=== PATIENT | female | born 1955 | race Two or more races ===

== ENCOUNTER 2024-07-02 07:28 | Emergency (ER) | payer OTHER ==
[~2024-07-02] VITALS: Ht 152.4 cm; Wt 49.0 kg
--- NOTE | 2024-07-02 08:14 | ED.PDOC ---
GI ASSESSMENT HPI Comments 69 year old female presents to the ED with chief complaint of abdominal pain. Patient reports that she has been experiencing RLQ abdominal burning for the past 2 weeks and with associated intermittent diarrhea. Patient denies any N/V, fever, chills, dysuria, chest pain, or cough. Chief Complaint: Abdominal Pain Time Seen by MD: 08:12 Reviewed Notes: Nurses Notes, Medications, Allergies Allergies: Coded Allergies: NO KNOWN ALLERGIES (Unverified , 07/02/24) Home Meds Active Scripts Sennosides-Docusate Sodium (Senna Plus 50-8.6 mg) 1 Cap Cap, 2 CAP PO Q.h.s. 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 History: Uterine Fibroids Family History Family History: Reviewed,noncontributory to illness Social History Smoker: Non-Smoker Alcohol: Denies ETOH Use Drugs: Denies Drug Use Lives In: Home Constitutional: denies: chills, diaphoresis, fatigue, fever, malaise, sweats, weakness, others EENTM: denies: blurred vision, double vision, ear bleeding, ear discharge, ear drainage, ear pain, ear ringing, eye pain, eye redness, hearing loss, mouth pain, mouth swelling, nasal discharge, nose bleeding, nose congestion, nose pain, photophobia, tearing, throat pain, throat swelling, voice changes, others Respiratory: denies: cough, hemoptysis, orthopnea, SOB at rest, shortness of breath, SOB with excertion, stridor, wheezing, others Cardiovascular: denies: chest pain, dizzy spells, diaphoresis, Dyspnea on exertion, edema, irregular heart beat, left arm pain, lightheadedness, palpitations, PND, syncope, others Gastrointestinal: reports: abdominal pain, diarrhea; denies: abdomen distended, blood streaked bowels, constipated, dysphagia, difficulty swallowing, hematemesis, melena, nausea, poor appetite, poor fluid intake, rectal bleeding, rectal pain, vomiting, others Genitourinary: denies: abnormal vagina bleeding, burning, dyspareunia, dysuria, flank pain, frequency, hematuria, incontinence, pain, , vagina d ischarge, urgency, others Neurological: denies: dizziness, fainting, headache, left sided numbness, left sided weakness, numbness, paresthesia, pre-existing deficit, right sided numbness, right sided weakness, seizure, speech problems, tingling, tremors, weakness, others Musculoskeletal: denies: back pain, gout, joint pain, joint swelling, muscle pain, muscle stiffness, neck pain, others Integumetry: denies: bruises, change in color, change in hair/nails, dryness, laceration, lesions, lumps, rash, wounds, others Allergic/Immunocompromised: denies: Difficulty Healing, Frequent Infections, Hives, Itching, others Hematologic/Lymphatic: denies: anemia, blood clots, easy bleeding, easy bruising, swollen glands, others Endocrine: denies: excessive hunger, excessive sweating, excessive thirst, excessive urination, flushing, intolerance to cold, intolerance to heat, unexplained weight gain, unexplained weight loss, others Psychiatric: denies: anxiety, bipolar disorder, depression, hopeless, panic disorder, schizophrenia, sleepless, suicidal, others All Other Systems: Reviewed and Negative Physical Exam General Appearance: Mild Distress, Thin HEENT: Normal ENT Inspection, Pharynx Normal, TMs Normal Neck: Full Range of Motion, Non-Tender, Normal, Normal Inspection Respiratory: Chest Non-Tender, Lungs Clear, No Accessory Muscle Use, No Respiratory Distress, Normal Breath Sounds Cardiovascular: No Edema, No JVD, No Murmur, No Gallop, Normal Peripheral Pulses, Regular Rate/Rhythm Breast Exam: Deferred Gastrointestinal: Hernia, No Organomegaly, No Pulsatile Mass, Normal Bowel Sounds, RLQ, Tenderness Genitalia: Deferred Pelvic: Deferred Rectal: Deferred Extremities: No calf tenderness, Normal capillary refill, Normal inspection, No rmal range of motion, Non-tender, No pedal edema Neurologic: Alert, design checker II-XII nml as Tested, No Motor Deficits, Normal Affect, Normal Mood, No Sensory Deficits Cerebellar Function: Normal Reflexes: Normal Skin: Dry, Normal Color, Warm Peripheral Pulses: 1+ carotid (R), 1+ carotid (L) Lymphatic: No Adenopathy Was a procedure done? Was a procedure done?: No GI differential Dx Differential Diagnosis: Appendicitis, Cholecystitis, Constipation, Diverticular disease, Ovarian cyst/torsion, UTI, Urolithiasis, Dehydration, Diabetes/ DKA, Drug toxicity, Electrolyte Imbalance, Mass, Anemia X-Ray, Labs, Meds, VS Vital Signs Date Time Temp Pulse Resp B/P (MAP) Pulse Ox O2 Delivery O2 Flow Rate FiO2 07/02/24 08:58 70 18 97 Room Air* 0 21 07/02/24 08:58 98.3 70 18 146/62 (90) 97 98.3 07/02/24 07:47 98.6 85 20 157/61 (93) 96 Lab Test 07/02/24 08:56 07/02/24 08:51 Range/Units White Blood Count 7.2 4.4-10.8 10^3/uL Red Blood Count 4.37 4.0-5.20 10^6/uL Hemoglobin 13.3 12.2-16.2 g/dL Hematocrit 40.2 36.0-46.0 % Mean Corpuscular Volume 91.9 80.0-100.0 fL Mean Corpuscular Hemoglobin 30.3 28.0-32.0 pg Mean Corpuscular Hemoglobin Concent 33.0 32.0-36.0 g/dL Red Cell Distribution Width 13.9 11.8-14.3 % Platelet Count 274 140-450 10^3/uL Mean Platelet Volume 7.7 6.9-10.8 fL Neutrophils (%) (Auto) 75.4 37.0-80.0 % Lymphocytes (%) (Auto) 19.1 10.0-50.0 % Monocytes (%) (Auto) 3.9 0.0-12.0 % Eosinophils (%) (Auto) 0.7 0.0-7.0 % Basophils (%) (Auto) 0.9 0.0-2.0 % Neutrophils # (Auto) 5.4 1.6-8.6 10 ^3/uL Lymphocytes # (Auto) 1.4 0.4-5.4 10 ^3/uL Monocytes # (Auto) 0.3 0-1.3 10 ^3/uL Eosinophils # (Auto) 0.1 0-0.8 10 ^3/uL Basophils # (Auto) 0.1 0-0.2 10 ^3/uL Nucleated Red Blood Cells 0.1 % Sodium Level 139 136-145 mmol/L Potassium Level 4.3 3.5-5.1 mmol/L Chloride Level 107 98-107 mmol/L Carbon Dioxide Level 27 20-31 mmol/L Anion Gap 5 5-15 Blood Urea Nitrogen 11 9-23 mg/dL Creatinine 0.64 0.550-1.02 mg/dL Glomerular Filtration Rate Calc 95 >90 mL/min BUN/Creatinine Ratio 17.2 10.0-20.0 Serum Glucose 106 74-106 mg/dL Calcium Level 10.5 H 8.7-10.4 mg/dL Magnesium Level 2.2 1.6-2.6 mg/dL Urine Color Light-yellow Yellow Urine Clarity Clear Clear Urine pH 7.5 5.0-9.0 Urine Specific Melvin 1.018 1.001-1.035 Urine Protein Negative Negative Urine Ketones Negative Negative Urine Blood Negative Negative /uL Urine Nitrite Negative Negative Urine Bilirubin Negative Negative Urine Urobilinogen Normal Negative mg/dL Urine Leukocyte Esterase Negative Negative /uL Urine RBC 2 0 - 4 /hpf Urine WBC 1 0 - 5 /hpf Urine Squamous Epithelial Cells Few <5 /hpf Urine Bacteria None seen None Seen /hpf Urine Glucose Normal Normal mg/dL CT Abd/Pel w/ IV Con: FINDINGS: 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 There is no evidence of a discrete renal lesion or nephrolithiasis. There is no hydronephrosis. The liver demonstrates decreased attenuation likely related mild fatty infiltration. There are scattered small hepatic cysts measuring up to 1.2 cm. The gallbladder, pancreas, adrenal glands, and spleen appear within normal limits. There is no evidence of abdominal lymphadenopathy. There is no free fluid or free air. The stomach grossly appears unremarkable. The small and large bowel loops demonstrate normal caliber. The abdominal aorta and IVC appear within normal limits. The bladder appears within normal limits the degree of distention. Pelvic organs appears unremarkable. There is no evidence of a pelvic mass or lymphadenopathy. There is no free fluid collection. There is scarring versus atelectasis in the posterior lung bases. There is no acute osseous abnormality. There is no evidence of an abdominal wall hernia. IMPRESSION: 1. There is no acute process in the abdomen and pelvis.. 2. 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 There is no evidence of a discrete renal lesion, nephrolithiasis or hydronephrosis. 3. Mild fatty infiltration of the liver. X-Ray, Labs, Meds, VS Comment Course in the emergency department eventful patient came in with the pain mostly on right side blood pressure 157/61 patient with a history of hypertension and fibroid surgery CBC is normal Urine is negative BNP negative Magnesium two two CT abdomen and pelvis is negative except for fatty liver no hernia Patient will be discharged home to follow up with PCP Images Reviewed?: Images reviewed and evaluated by me Time of 1ST Reevaluation: 09:12 Reevaluation 1ST: Unchanged Time of 2ND Reevaluation: 11:18 Reevaluation 2ND: Improved Consultation: PCP Patient Education/Counseling: Diagnosis, Treatment, Prognosis, Need For Follow Up Family Education/Counseling: Diagnosis, Treatment, Prognosis, Need For Follow Up, No Family Present Additional Information - The following tests were ordered, and results were reviewed by me: CT Abd/Pel w/ IV Con, UA, CBC, BMP, Magnesium - I reviewed and agreed with the following test results read by other provider: CT Abd/Pel w/ IV Con - I discussed treatments and results with medical personnel. Departure 1 Departure Time of Disposition: 11:19 Impression: Primary Impression: Right sided abdominal pain Ruled Out: Appendicitis, Abdominal hernia, Urinary tract infection Disposition: HOME / SELF CARE / HOMELESS Condition: Good Additional Instructions: Push fluids and follow up with your PCP e-Prescriptions Sennosides-Docusate Sodium (Senna Plus 50-8.6 mg) 1 Cap Cap 2 CAP PO Q.h.s. for 5 Days, #10 CAP Prov: JENN FINLEY MD 07/02/24 Metoclopramide Hcl (Reglan) 10 Mg Tab 10 MG PO TID for 5 Days, #15 TAB Prov: JENN FINLEY MD 07/02/24 Discharged With: Self Critical Care Note Critical Care Time?: No Stability Stability form required: No Heart Score Heart Score: Heart Score Response (Comments) Value History N/A 0 EKG N/A 0 Age >65 2 Risk Factors 1 or 2 risk factors 1 Troponin N/A 0 Total 3 I personally scribed for JENN FINLEY MD ([email or web address]) on 07/02/24 at 08:14. Electronically submitted by [employer] ([email or web address]). I personally scribed for JENN FINLEY MD ([email or web address]) on 07/02/24 at 11:33. Electronically submitted by [employer] ([email or web address]). I personally scribed for JENN FINLEY MD ([email or web address]) on 07/02/24 at 11:35. Electronically submitted by [employer] ([email or web address]). JENN FINLEY MD Jul 02, 2024 08:14
[2024-07-02] MEDS: SODIUM CHLORIDE 0.9% 1,000 ML IV ONE (08:23)
[2024-07-02 08:58] VITALS: PULSE 70; RESP 18; O2SAT 97
[2024-07-02] MEDS: METOCLOPRAMIDE HCL 5MG/ml INJ 2ml VIAL IV ONE (08:58)
[2024-07-02 09:05] LABS: Urine Bacteria None Seen /hpf (None Seen)
[2024-07-02 09:10] LABS: Basophils # (auto) 0.1 10 ^3/uL (0-0.2); Basophils % (auto) 0.9 % (0.0-2.0); Eosinophils # (auto) 0.1 10 ^3/uL (0-0.8); Eosinophils % (auto) 0.7 % (0.0-7.0); Hematocrit 40.2 % (36.0-46.0); Hemoglobin 13.3 g/dL (12.2-16.2); Lymphocytes # (auto) 1.4 10 ^3/uL (0.4-5.4); Lymphocytes % (auto) 19.1 % (10.0-50.0); Mean Corpuscular Hemoglobin 30.3 pg (28.0-32.0); Mean Corpuscular Volume 91.9 fL (80.0-100.0); Monocytes # (auto) 0.3 10 ^3/uL (0-1.3); Monocytes % (auto) 3.9 % (0.0-12.0); Neutrophils # (auto) 5.4 10 ^3/uL (1.6-8.6); Neutrophils % (auto) 75.4 % (37.0-80.0); Nucleated Red Blood Cells % 0.1 %; Platelet Count (auto) 274 10^3/uL (140-450); Red Blood Cells 4.37 10^6/uL (4.0-5.20); Red Cell Distribution Width 13.9 % (11.8-14.3); White Blood Cell 7.2 10^3/uL (4.4-10.8)
[2024-07-02 09:22] LABS: Chloride 107 mmol/L (98-107); Potassium 4.3 mmol/L (3.5-5.1); Sodium 139 mmol/L (136-145)
[2024-07-02 09:23] LABS: Anion Gap 5 (5-15); Carbon Dioxide 27 mmol/L (20-31)
[2024-07-02 09:27] LABS: Urine Blood Negative /uL (Negative); Urine Clarity Clear (Clear); Urine Color Light-Yellow (Yellow); Urine Protein, UAD Negative (Negative); Urine Specific Gravity 1.018 (1.001-1.035); Urine Urobilinogen Normal (Negative); Urine WBC 1 /hpf (0 - 5); Urine pH 7.5 (5.0-9.0)
[2024-07-02 09:28] LABS: BUN/Creatinine Ratio 17.2 (10.0-20.0); Blood Urea Nitrogen 11 mg/dL (9-23)
[2024-07-02 09:29] LABS: Magnesium 2.2 mg/dL (1.6-2.6)
[2024-07-02 09:31] LABS: Calcium 10.5 mg/dL (8.7-10.4); Glucose 106 mg/dL (74-106)
[2024-07-02] MEDS: IOHEXOL 300 MG/ML 100ML BOTTLE IJ ONE (09:56)
--- NOTE | 2024-07-02 10:21 | DVH ---
Exam: CT CT AB PEL WITH IV CON ONLY History: Right-sided abdominal pain possible hernia TECHNIQUE: A digital home health clinical supervisor image was obtained. During the uneventful, intravenous administration of c ontrast material, multislice data acquisition was obtained through the abdomen and pelvis. The data s et was subsequently reconstructed into axial images. Images were reviewed on a work station using a c ombination of axial and multiplanar using a variety of window levels and settings. 100 cc of Omnipaqu e 300 contrast was injected intravenously. All CT scans at this medical facility are performed using dose modulation techniques as appropriate t o a performed exam including the following:Automated exposure control was utilized; adjustment of the MA and/or KV according to patient size; and use of iterative reconstruction technique. Radiation Dose Information: CT Dose: CTDI volume is 5.61 mGy. Dose-length product is 269.01 mGy*cm Comparison: None FINDINGS: The left kidney is ectopically positioned in the midline upper pelvis/lower abdomen region and is mal rotated.. There is no evidence of a discrete renal lesion or nephrolithiasis. There is no hydronephro sis. The liver demonstrates decreased attenuation likely related mild fatty infiltration. There are scatte red small hepatic cysts measuring up to 1.2 cm. The gallbladder, pancreas, adrenal glands, and splee n appear within normal limits. There is no evidence of abdominal lymphadenopathy. There is no free fluid or free air. The stomach grossly appears unremarkable. The small and large bowel loops demonstrate normal caliber. The abdominal aorta and IVC appear within normal limits. The bladder appears within normal limits the degree of distention. Pelvic organs appears unremarkabl e. There is no evidence of a pelvic mass or lymphadenopathy. There is no free fluid collection. There is scarring versus atelectasis in the posterior lung bases. There is no acute osseous abnormality. There is no evidence of an abdominal wall hernia. IMPRESSION: 1. There is no acute process in the abdomen and pelvis.. 2. 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 Th ere is no evidence of a discrete renal lesion, nephrolithiasis or hydronephrosis. 3. Mild fatty infiltration of the liver. HS:Y
[2024-07-02] MEDS ORDERED: METO-281 PO (11:22)
[2024-07-02] MEDS ORDERED: SENN1CAP4 PO (11:22)
[2024-07-02 11:33] VITALS: BP 169/71; PULSE 71; RESP 16; TEMP 97.8; O2SAT 99
== END 2024-07-02 11:35 | disposition home or self-care (01) ==
LOC: ER 07:28
DX: R10.31 Right lower quadrant pain (principal); I10 Essential (primary) hypertension; Z98.890 Other specified postprocedural states
CPT/HCPCS: 36415; 74177; 80048; 81001; 83735; 85025; 99285; Q9967

== ENCOUNTER → 2024-09-04 | Outpatient (CLI) | payer MEDICAID ==
[~2024-09-04] MED LIST: METO-281 PO; SENN1CAP4 PO
[2024-09-04 08:49] LABS: Anion Gap 6 (5-15); Carbon Dioxide 29 mmol/L (20-31); Chloride 105 mmol/L (98-107); Potassium 4.4 mmol/L (3.5-5.1); Sodium 140 mmol/L (136-145)
[2024-09-04 08:55] LABS: BUN/Creatinine Ratio 28.6 (10.0-20.0); Blood Urea Nitrogen 18 mg/dL (9-23); Glucose 101 mg/dL (74-106); Triglycerides 85 mg/dL (< 150)
[2024-09-04 08:57] LABS: Calcium 10.8 mg/dL (8.7-10.4); Cholesterol 248 mg/dL (< 200); LDL Cholesterol 159 mg/dL (< 100)
[2024-09-04 09:04] LABS: HDL Cholesterol 78 mg/dL (40-59)
[2024-09-04 09:24] LABS: Basophils # (auto) 0 10 ^3/uL (0-0.2); Basophils % (auto) 0.5 % (0.0-2.0); Eosinophils # (auto) 0.3 10 ^3/uL (0-0.8); Eosinophils % (auto) 4.1 % (0.0-7.0); Hematocrit 42.9 % (36.0-46.0); Hemoglobin 13.7 g/dL (12.2-16.2); Lymphocytes # (auto) 1.7 10 ^3/uL (0.4-5.4); Lymphocytes % (auto) 25.4 % (10.0-50.0); Mean Corpuscular Hemoglobin 29.2 pg (28.0-32.0); Mean Corpuscular Volume 91.2 fL (80.0-100.0); Monocytes # (auto) 0.4 10 ^3/uL (0-1.3); Monocytes % (auto) 6.5 % (0.0-12.0); Neutrophils # (auto) 4.3 10 ^3/uL (1.6-8.6); Neutrophils % (auto) 63.5 % (37.0-80.0); Nucleated Red Blood Cells % 0.1 %; Platelet Count (auto) 277 10^3/uL (140-450); Red Cell Distribution Width 14.1 % (11.8-14.3); White Blood Cell 6.7 10^3/uL (4.4-10.8)
== END | disposition home or self-care (01) ==
LOC: LAB 07:15
PROVIDERS: ATTEND Student in an Organized Health Care Education/Training Program
DX: Z12.11 Encounter for screening for malignant neoplasm of colon (principal); I10 Essential (primary) hypertension; E55.9 Vitamin D deficiency, unspecified; R73.9 Hyperglycemia, unspecified
CPT/HCPCS: 36415; 80048; 80061; 82306; 83036; 84443; 85025

== ENCOUNTER → 2024-09-05 | Outpatient (CLI) | payer MEDICAID | END | disposition home or self-care (01) | LOC: LAB 12:03 | PROVIDERS: ATTEND Student in an Organized Health Care Education/Training Program | DX: Z12.11 Encounter for screening for malignant neoplasm of colon (principal); I10 Essential (primary) hypertension; E55.9 Vitamin D deficiency, unspecified; R73.9 Hyperglycemia, unspecified | CPT/HCPCS: 82274 ==

== ENCOUNTER 2025-04-30 07:27 | Outpatient (CLI) | payer MEDICAID ==
[2025-04-30 07:43] LABS: Hematocrit 39.6 % (36.0-46.0); Hemoglobin 13.3 g/dL (12.2-16.2); Mean Corpuscular Hemoglobin 30.2 pg (28.0-32.0); Mean Corpuscular Volume 90.3 fL (80.0-100.0); Nucleated Red Blood Cells % 0.0 %
[2025-04-30 08:06] LABS: Alanine Aminotransferase 28 U/L (7-40); Alkaline Phosphatase 85 U/L (46-116); Carbon Dioxide 27 mmol/L (20-31); Chloride 102 mmol/L (98-107); Glucose 95 mg/dL (74-106); Triglycerides 67 mg/dL (< 150)
[2025-04-30 08:07] LABS: Albumin 4.5 g/dL (3.2-4.8); Anion Gap 9 (5-15); BUN/Creatinine Ratio 19.1 (10.0-20.0); Bilirubin, Total 0.7 mg/dL (0.2-1.0); Blood Urea Nitrogen 13 mg/dL (9-23); Potassium 4.8 mmol/L (3.5-5.1); Sodium 138 mmol/L (136-145)
[2025-04-30 08:11] LABS: Calcium 10.4 mg/dL (8.7-10.4); Cholesterol 250 mg/dL (< 200); HDL Cholesterol 84 mg/dL (40-59); Total Protein 8.2 g/dL (5.7-8.2)
[2025-04-30 08:18] LABS: Urine Protein, UAD Negative (Negative)
== END 2025-04-30 17:00 | disposition home or self-care (01) ==
LOC: LAB 07:27
PROVIDERS: ATTEND Student in an Organized Health Care Education/Training Program
DX: I10 Essential (primary) hypertension (principal); E78.5 Hyperlipidemia, unspecified
CPT/HCPCS: 36415; 80053; 80061; 81001; 85025